=== PATIENT | female | born 1990 | race Caucasian/White ===

== ENCOUNTER 2017-11-04 14:26 | Emergency (ER) | payer OTHER ==
[2017-11-04] MEDS ORDERED: Zofran 4 MG/2 ML VIAL IV ONE (14:43)
[2017-11-04] MEDS ORDERED: Sodium Chloride 0.9% 1000 ML 1,000 ML IV STA ×2 (14:43→15:44)
[2017-11-04] MEDS ORDERED: Sodium Chloride 0.9% 1000 ML 1,000 ML ONE ×2 (14:55→16:01)
[2017-11-04] MEDS ORDERED: Zofran 4 MG/2 ML VIAL ONE (14:55)
--- NOTE | 2017-11-04 15:02 | ERPHSYRPT ---
- History of Present Illness Time Seen by Provider: 11/04/17 14:45 Source: patient Exam Limitations: clinical condition Physician History: PATIENT IS A -2 PARA-1, 9 WEEKS GESTATION CONFIRMED WITH ULTRASOUND LAST WEEK COMPLAINS OF ACUTE ONSET OF FREQUENT EPISODES OF EMESIS. DENIES WEAKNESS, DIZZINESS UPON STANDING, ABDOMINAL PAIN, OR VAGINAL BLEEDING. Timing/Duration: today Modifying Factors: Improves With: nothing Associated Symptoms: nausea, vomiting Allergies/Adverse Reactions: No Known Drug Allergies Allergy (Verified 11/04/17 14:47) Home Medications: Pnv,Calcium 72/Iron/Folic Acid [Pnv Plus Multivit Tab] 1 tab PO DAILY 11/04/17 [History] Hx Tetanus, Diphtheria Vaccination/Date Given: No Hx Influenza Vaccination/Date Given: No Hx Pneumococcal Vaccination/Date Given: No - Review of Systems Constitutional: No Fever, No Chills Eyes: No Symptoms Ears, Nose, & Throat: No Symptoms Respiratory: No Symptoms, No Cough, No Dyspnea Cardiac: No Symptoms, No Chest Pain, No Edema, No Syncope Abdominal/Gastrointestinal: Nausea, Vomiting, No Abdominal Pain, No Diarrhea Genitourinary Symptoms: No Symptoms, No Dysuria Musculoskeletal: No Symptoms, No Back Pain, No Neck Pain Skin: No Symptoms, No Rash Neurological: No Dizziness, No Focal Weakness, No Sensory Changes Psychological: No Symptoms Endocrine: No Symptoms All Other Systems: Reviewed and Negative - Past Medical History Pertinent Past Medical History: No - Past Surgical History Past Surgical History: Yes Female Surgical History: Section - Social History Smoking Status: Never smoker Exposure to second hand smoke: No Drug Use: none Patient Lives Alone: No - Nursing Vital Signs Nursing Vital Signs: Initial Vital Signs Temperature 97.8 F 11/04/17 15:00 Pulse Rate 84 11/04/17 15:00 Respiratory Rate 20 11/04/17 15:00 Blood Pressure 136/80 11/04/17 15:00 O2 Sat by Pulse Oximetry 100 11/04/17 15:00 Pain Scale Pain Intensity 0 - Physical Exam General Appearance: no apparent distress, alert Eye Exam: PERRL/EOMI, eyes nml inspection Ears, Nose, Throat Exam: normal ENT inspection, TMs normal, pharynx normal, moist mucous membranes Neck Exam: normal inspection, non-tender, supple, full range of motion Respiratory Exam: normal breath sounds, lungs clear, No respiratory distress Cardiovascular Exam: regular rate/rhythm, normal heart sounds, normal peripheral pulses Gastrointestinal/Abdomen Exam: soft, normal bowel sounds, other (NONTENDER), No tenderness Back Exam: normal inspection, normal range of motion, No CVA tenderness, No vertebral tenderness Extremity Exam: normal inspection, normal range of motion, pelvis stable Neurologic Exam: alert, oriented x 3, cooperative, normal mood/affect, nml cerebellar function, nml station & gait, sensation nml, No motor deficits Skin Exam: normal color, warm, dry, No rash Lymphatic Exam: No adenopathy SpO2 Interpretation: normal SpO2: 98 Ordered Tests: Active Orders 24 hr Category Date Time Status IV Insertion STAT Care 11/04/17 15:12 Active Orthostatic Vital Signs STAT Care 11/04/17 14:44 Active BMP Stat Lab 11/04/17 14:45 Completed CBC W DIFF Stat Lab 11/04/17 14:45 Completed CULTURE,URINE Stat Lab 11/04/17 16:00 Received UA W/ MICROSCOPIC Stat Lab 11/04/17 16:00 Completed Medication Summary Discontinued Medications Generic Name Dose Route Start Last Admin Trade Name Freq PRN Reason Stop Dose Admin Sodium Chloride 1,000 mls @ 999 mls/hr 11/04/17 14:43 11/04/17 14:56 Sodium Chloride 0.9% 1000 Ml IV 11/04/17 15:43 999 mls/hr .Q1H1M STA Administration Sodium Chloride Confirm 11/04/17 14:55 Sodium Chloride 0.9% 1000 Ml Administered 11/04/17 14:56 Dose 1,000 mls @ ud .ROUTE .STK-MED ONE Sodium Chloride 1,000 mls @ 999 mls/hr 11/04/17 15:44 11/04/17 16:02 Sodium Chloride 0.9% 1000 Ml IV 11/04/17 16:44 999 mls/hr .Q1H1M STA Administration Sodium Chloride Confirm 11/04/17 16:01 Sodium Chloride 0.9% 1000 Ml Administered 11/04/17 16:02 Dose 1,000 mls @ ud .ROUTE .STK-MED ONE Ondansetron HCl 4 mg 11/04/17 14:43 11/04/17 14:57 Zofran 4 Mg/2 Ml Vial IV 11/04/17 14:44 4 mg STAT ONE Administration Ondansetron HCl Confirm 11/04/17 14:55 Zofran 4 Mg/2 Ml Vial Administered 11/04/17 14:56 Dose 4 mg .ROUTE .STK-MED ONE Lab/Rad Data: Laboratory Result Diagrams 11/04/17 14:45 11/04/17 14:45 Laboratory Results 11/04/17 11/04/17 11/04/17 Range/Units 16:00 14:45 14:45 WBC 11.0 H (4.0-10.5) K/mm3 RBC 4.69 (4.1-5.4) M/mm3 Hgb 13.5 (12.0-16.0) gm/dl Hct 39.4 (35-47) % MCV 84.0 (78-100) fl MCH 28.8 (26-32) pg MCHC 34.3 (32-36) g/dl RDW 13.7 (11.5-14.0) % Plt Count 272 (150-450) K/mm3 MPV 10.8 H (6-9.5) fl Gran % 82.5 H (36.0-66.0) % Lymphocytes % 11.7 L (24.0-44.0) % Monocytes % 5.5 (0.0-12.0) % Eosinophils % 0.2 (0.00-5.0) % Basophils % 0.1 (0.0-0.4) % Basophils # 0.01 (0-0.4) Sodium 138 (136-145) mEq/L Potassium 3.7 (3.5-5.1) mEq/L Chloride 103 (98-107) mEq/L Carbon Dioxide 21.7 (21-32) mEq/L Anion Gap 17.4 H (5-15) MEQ/L BUN 6 L (9-20) mg/dL Creatinine 0.58 (0.55-1.30) mg/dl Estimated GFR > 60 ML/MIN Glucose 87 (70-110) MG/DL Calcium 8.6 (8.5-10.1) mg/dL Ur Collection Type CCMS Urine Color YELLOW (YELLOW) Urine Appearance CLEAR (CLEAR) Urine pH 5.0 (5-6) Ur Specific [place] 1.010 (1.005-1.025) Urine Protein NEGATIVE (Negative) Urine Ketones MODERATE (NEGATIVE) Urine Blood 50 (0-5) Amor/ul Urine Nitrite NEGATIVE (NEGATIVE) Urine Bilirubin NEGATIVE (NEGATIVE) Urine Urobilinogen NORMAL (0-1) mg/dL Ur Leukocyte Esterase TRACE (NEGATIVE) Urine Microscopic RBC 0-2 (0-2) /HPF Urine Microscopic WBC 2-5 (0-5) /HPF Ur Epithelial Cells FEW (FEW) /HPF Urine Bacteria FEW (NEGATIVE) /HPF Urine Culture Reflexed YES (NO) Urine Glucose NEGATIVE (NEGATIVE) mg/dL Specimen Received 11-04-17 1614 - Progress Progress Note: 11/04/17 14:58 ORTHOSTATIC VITAL SIGNS UNCHANGED, IV NORMAL SALINE 2 LITERS OVER 2 HOURS, ZOFRAN 4MG IV 11/04/17 15:38 PATIENT HAD NO EPISODES OF DRY HEAVES OR EMESIS THROUGHOUT HER EMERGENCY ROOM VISIT Counseled pt/family regarding: lab results, diagnosis, need for follow-up - Departure Time of Disposition: 17:25 Departure Disposition: Home Clinical Impression: HYPEREMESIS GRAVIDARIUM Condition: Stable Critical Care Time: No Referrals: BERTA BIANCHI [Primary Care Provider] - Additional Instructions: BEGIN A CLEAR LIQUID DIET FOR 24 HOURS, FOLLOWED BY A FULL LIQUID DIET DAY #2, INCLUDES SOUPS, TOAST,CRACKERS AND CHEESES, FOLLOWED BY REGULAR DIET DAY #3, ZOFRAN 4MG EVERY 4 HOURS NEEDED FOR NAUSEA. CONSULT YOUR PRIMARY CARE PROVIDER TOMORROW FOR A FOLLOWUP APPOINTMENT. RETURN TO EMERGENCY FOR VOMITING. Prescriptions: Ondansetron ODT 4 MG [Zofran Odt 4 mg] 4 mg PO Q4H PRN PRN #8 tab.rapdis PRN Reason: Nausea
[2017-11-04 15:08] LABS: BASOPHIL % 0.1 % (0.0-0.4); Basophil (Absolute #) 0.01 (0-0.4); Eosinophil % 0.2 % (0.00-5.0); Eosinophil (Absolute #) 0.02 (0-0.5); Granulocyte Absolute (ANC) 9.06 (1.4-6.9); Granulocytes % 82.5 % (36.0-66.0); Hematocrit 39.4 % (35-47); Hemoglobin 13.5 gm/dl (12.0-16.0); Lymphocyte (Absolute #) 1.28 (1.0-4.6); Lymphocytes % 11.7 % (24.0-44.0); Mean Corpuscular Hemoglobin 28.8 pg (26-32); Mean Corpuscular Hgb Concent. 34.3 g/dl (32-36); Mean Platelet Volume 10.8 fl (6-9.5); Monocytes % 5.5 % (0.0-12.0); Platelet Count 272 K/mm3 (150-450); Red Blood Count 4.69 M/mm3 (4.1-5.4); Red Cell Distribution Width 13.7 % (11.5-14.0)
[2017-11-04 15:37] LABS: ANION GAP 17.4 MEQ/L (5-15); BLOOD UREA NITROGEN 6 mg/dL (9-20); CHLORIDE 103 mEq/L (98-107); Calcium 8.6 mg/dL (8.5-10.1); Carbon Dioxide 21.7 mEq/L (21-32); Creatinine 1 0.58 mg/dl (0.55-1.30); EST GLOMERULAR FILTRATION RATE > 60 ML/MIN; Glucose 87 MG/DL (70-110); Potassium 3.7 mEq/L (3.5-5.1); SODIUM 138 mEq/L (136-145)
[2017-11-04 16:15] LABS: Appearance CLEAR (CLEAR); Bilirubin NEGATIVE (NEGATIVE); Blood 50 Ery/ul (0-5); Glucose NEGATIVE (NEGATIVE); Ketones MODERATE (NEGATIVE); Leukocyte Esterase TRACE (NEGATIVE); Nitrite NEGATIVE (NEGATIVE); Protein,Urine Dip NEGATIVE (Negative); Urobilinogen NORMAL mg/dL (0-1)
[2017-11-04 16:30] LABS: Bacteria FEW /HPF (NEGATIVE); Epithelial Cells FEW /HPF (FEW)
[2017-11-04 16:40] VITALS: BP 129/74
[2017-11-04 16:53] VITALS: O2SAT 98
[2017-11-04 17:36] VITALS: PULSE 77
== END 2017-11-04 17:36 | disposition home or self-care (01) ==
LOC: ED 14:26
DX: O21.0 Mild hyperemesis gravidarum (principal); Z3A.09 9 weeks gestation of pregnancy
CPT/HCPCS: 36000; 36415; 80048; 81000; 85025; 87077; 87086; 87186; 96360; 96361; 96374; 99284; J2405

== ENCOUNTER 2018-04-21 08:36 | Observation (INO) | payer OTHER ==
[2018-04-21 09:10] VITALS: BP 119/69; PULSE 91
--- NOTE | 2018-04-21 11:22 | XRAY ---
Indication: Evaluate PAOLA. 4 quadrant PAOLA is 12.4 cm, unchanged from January 20, 2018 exam.
== END 2018-04-21 10:00 | disposition home or self-care (01) ==
LOC: UNDOADMOB 08:36 → OB 08:36 → UNDODISOB 10:00
PROVIDERS: ADMIT Family Medicine; ATTEND Family Medicine
DX: Z34.83 Encounter for supervision of other normal pregnancy, third trimester (principal)
CPT/HCPCS: 59025; 76815; G0378

== ENCOUNTER 2018-04-28 08:31 | Observation (INO) | payer OTHER ==
--- NOTE | 2018-04-28 09:25 | XRAY ---
Indication: Evaluate PAOLA. Limited OB ultrasound performed to evaluate PAOLA. 4 quadrant PAOLA is 10.4 cm, previously 12.4 cm on April 21, 2018.
[2018-04-28 10:23] VITALS: BP 112/60; PULSE 51
== END 2018-04-28 10:21 | disposition home or self-care (01) ==
LOC: OB 08:31
PROVIDERS: ADMIT Family Medicine; ATTEND Family Medicine
DX: Z34.83 Encounter for supervision of other normal pregnancy, third trimester (principal)
CPT/HCPCS: 59025; 76815; G0378

== ENCOUNTER 2018-05-05 08:43 | Observation (INO) | payer OTHER ==
[2018-05-05 09:17] VITALS: BP 123/70; PULSE 96
--- NOTE | 2018-05-05 09:43 | XRAY ---
Indication: PAOLA. Limited OB ultrasound performed to evaluate PAOLA. heart rate 154 bpm. Four-quadrant PAOLA is 9.8 cm, previously 10.4 cm on April 28, 2018.
== END 2018-05-05 10:55 | disposition home or self-care (01) ==
LOC: OB 08:43
PROVIDERS: ADMIT Family Medicine; ATTEND Family Medicine
DX: Z34.83 Encounter for supervision of other normal pregnancy, third trimester (principal)
CPT/HCPCS: 76815; G0378; 59025

== ENCOUNTER 2018-05-12 08:19 | Observation (INO) | payer OTHER ==
[2018-05-12 08:46] VITALS: BP 145/67; PULSE 56
--- NOTE | 2018-05-12 09:30 | XRAY ---
Indication: Evaluate PAOLA. well-being. Limited OB ultrasound performed to evaluate PAOLA. 4 quadrant PAOLA is 4.5 cm, previously 9.8 cm on May 05, 2018.
== END 2018-05-12 09:15 | disposition home or self-care (01) ==
LOC: OB 08:19
PROVIDERS: ADMIT Family Medicine; ATTEND Family Medicine
DX: Z34.83 Encounter for supervision of other normal pregnancy, third trimester (principal)
CPT/HCPCS: 76815; G0378; 59025

== ENCOUNTER 2018-05-16 08:32 | Observation (INO) | payer OTHER ==
[2018-05-16 09:02] VITALS: BP 142/77; PULSE 55
== END 2018-05-16 10:55 | disposition home or self-care (01) ==
LOC: OB 08:32
PROVIDERS: ADMIT Family Medicine; ATTEND Family Medicine
DX: Z34.83 Encounter for supervision of other normal pregnancy, third trimester (principal)
CPT/HCPCS: 59025; G0378

== ENCOUNTER 2018-05-19 02:14 | Inpatient (IN) | payer OTHER ==
[~2018-05-19 02:14] MED LIST: Lactated Ringers 1,000 ML IV SCH; Pepcid 20 MG VIAL IV SCH; Reglan 10 MG/2 ML IV SCH
[2018-05-19 03:01] LABS: Hematocrit 32.8 % (35-47); Hemoglobin 11.1 gm/dl (12.0-16.0); Mean Cell Volume 88.2 fl (78-100); Mean Corpuscular Hemoglobin 29.8 pg (26-32); Mean Corpuscular Hgb Concent. 33.8 g/dl (32-36); Mean Platelet Volume 11.5 fl (6-9.5); Platelet Count 206 K/mm3 (150-450); Red Blood Count 3.72 M/mm3 (4.1-5.4); Red Cell Distribution Width 14.7 % (11.5-14.0); White Blood Count 12.5 K/mm3 (4.0-10.5)
[2018-05-19 03:55] LABS: Amphetamine,Urine NEGATIVE (NEGATIVE); Barbiturate,Urine NEGATIVE (NEGATIVE); Benzodiazepine,Urine NEGATIVE (NEGATIVE); Cocaine,Urine NEGATIVE (NEGATIVE); Methadone,Urine NEGATIVE (NEGATIVE); Opiate,Urine NEGATIVE (NEGATIVE); PCP,Urine NEGATIVE (NEGATIVE); THC,Urine NEGATIVE (NEGATIVE)
[2018-05-19 04:16] LABS: INR 0.97 (0.8-3.0)
[2018-05-19 04:19] LABS: PTT 24.3 SECONDS (25.3-37.0)
[2018-05-19 04:46] LABS: Appearance CLEAR (CLEAR); Bilirubin NEGATIVE (NEGATIVE); Blood NEGATIVE Ery/ul (0-5); Glucose NEGATIVE (NEGATIVE); Ketones NEGATIVE (NEGATIVE); Leukocyte Esterase NEGATIVE (NEGATIVE); Nitrite NEGATIVE (NEGATIVE); Protein,Urine Dip NEGATIVE (Negative); Specific Gravity 1.025 (1.005-1.025); Urobilinogen NORMAL mg/dL (0-1)
[2018-05-19 04:48] LABS: ABO TYPING A; RH TYPING POSITIVE
[2018-05-19 04:49] LABS: Antibody Screen POSITIVE (NEGATIVE)
[2018-05-19] MEDS ORDERED: CEFAZOLIN 2 GM-D5W BAG** 2 GM/50 ML ML IV SCH (05:00)
[2018-05-19] MEDS: BICITRA 30 ML CUP PO SCH ×2 (05:30→05:52)
[2018-05-19] MEDS ORDERED: Lactated Ringers 1,000 ML IV ONE (06:31)
--- NOTE | 2018-05-19 08:24 | OP ---
SURGERY DATE/TIME: 05/19/2018 0700 PREOPERATIVE DIAGNOSES: 1) History of prior section. 2) Anti-E antibody syndrome. 3) Oligohydramnios. POSTOPERATIVE DIAGNOSES: 1) History of prior section. 2) Anti-E antibody syndrome. 3) Oligohydramnios. PROCEDURE: Repeat low transverse section. SURGEON: Elpidio Carrion M.D. ESTIMATED BLOOD LOSS: 400 cc. URINE OUTPUT: 50 cc of clear straw-colored urine. ANESTHESIA: Spinal by Jono Rosenberg CRNA. SPECIMENS: Placenta was sent for pathology. DESCRIPTION OF PROCEDURE: After informed written consent was obtained, the patient was taken to the operating room. She has a history of anti-E antibody syndrome and was being seen with [facility] in [place] cooperatively and found to have oligohydramnios with an PAOLA of around 4.1. She was prepped and draped in the usual sterile fashion after she underwent spinal anesthesia and then adequate level of anesthesia was assessed. Skin incision was made by knife and carried down through the subcutaneous fat to the level of the fascia. The fascia was nicked on both sides of the midline and extended in horizontal fashion using curved Alvarez scissors. The superior free edge of the fascia was grasped with Ethan clamps and the underlying rectus muscles were dissected free. The same was repeated inferiorly. The peritoneal cavity was opened bluntly and then a bladder flap was created and reflected over the lower uterine segment. A horizontal uterine incision was made by knife and carried down to the level of the amniotic membranes which were carefully artificially ruptured. There was very scant amniotic fluid as excepted. A female infant was delivered from the vertex presentation with no respiratory effort at the time of . The cord was clamped and cut and she was quickly handed off to the awaiting nursery team. The placenta was manually removed manually and the uterus was exteriorized. The uterine cavity was sponge curetted clean with lap sponge. The uterine incision was closed with #1 chromic in a running locked fashion. Good hemostasis and good closure were achieved. The posterior cul-de-sac was wiped free of blood and clot with a moist lap sponge. The uterus was returned to the peritoneal cavity. Lateral gutters were wiped free of blood and clot. The uterine incision was inspected and noted to have good hemostasis and good closure. The fascia was closed with 0 Vicryl in a running fashion with good closure and good hemostasis achieved. The subcutaneous fat was irrigated with warm, sterile saline. Any areas of bleeding were cauterized with electrocautery. Finally, the skin layer was closed with 4-0 undyed Vicryl in a running subcuticular fashion. Steri-Strips and occlusive dressing were placed over the incision. The patient was transferred to the recovery in good condition.
[2018-05-19 09:36] LABS: ANION GAP 12.8 MEQ/L (5-15); BLOOD UREA NITROGEN 5 mg/dL (7-17); CHLORIDE 108 mmol/L (98-107); Calcium 8.6 mg/dL (8.4-10.2); Carbon Dioxide 22 mmol/L (22-30); Creatinine 1 0.44 mg/dL (0.52-1.04); Glucose 103 mg/dL (74-106); PHOSPHOROUS 4.7 mg/dL (2.5-4.5); SODIUM 140 mmol/L (137-145)
[2018-05-19 09:39] LABS: Potassium 2.6 mmol/L (3.5-5.1)
[2018-05-19 09:58] LABS: Appearance CLOUDY (CLEAR); Bilirubin NEGATIVE (NEGATIVE); Glucose NEGATIVE (NEGATIVE); Ketones NEGATIVE (NEGATIVE); Leukocyte Esterase TRACE (NEGATIVE); Mucus MODERATE /HPF (NEGATIVE); Nitrite NEGATIVE (NEGATIVE); Protein,Urine Dip NEGATIVE (Negative); RBC 0-2 /HPF (0-2); Urobilinogen NORMAL mg/dL (0-1); WBC 0-2 /HPF (0-5)
[2018-05-19 09:59] LABS: Bacteria MODERATE /HPF (NEGATIVE); Epithelial Cells MODERATE /HPF (FEW)
[2018-05-19] MEDS ORDERED: NORCO 5/325 MG PO PRN (10:09)
[2018-05-19] MEDS ORDERED: CORTISONE 1% CREAM TP PRN (10:09)
[2018-05-19] MEDS ORDERED: Ambien 10 MG PO PRN (10:09)
[2018-05-19] MEDS ORDERED: Restoril 15 MG PO PRN (10:09)
[2018-05-19] MEDS ORDERED: TYLENOL EXTRA STRENGTH 500 MG PO PRN (10:09)
[2018-05-19] MEDS ORDERED: Dulcolax 10 MG SUPP PR PRN (10:09)
[2018-05-19] MEDS ORDERED: Anucort-HC SUPPOSITORY PR PRN (10:09)
[2018-05-19] MEDS ORDERED: Mylicon 80MG PO PRN (10:09)
[2018-05-19] MEDS: POTASSIUM CHLORIDE 20 mEq IN WATER 100ML 20 MEQ/100 ML BAG IV SCH ×2 (10:31→12:37)
[2018-05-19] MEDS ORDERED: HOLD NARCOTIC ANALGESICS AND SEDATIVES X24 HR MC PRN (11:25)
[2018-05-19] MEDS ORDERED: CLARITIN 10 MG PO PRN (11:25)
[2018-05-19] MEDS ORDERED: DEMEROL 50 MG IV PRN (11:25)
[2018-05-19] MEDS ORDERED: PERCOCET TABLET 5/325MG PO PRN (11:25)
[2018-05-19] MEDS ORDERED: BENADRYL 50 MG/ML IV PRN (11:25)
[2018-05-19] MEDS ORDERED: Nubain 10 MG/ML IV PRN (11:25)
[2018-05-19] MEDS ORDERED: MORPHINE SULFATE 2 MG INJ IV PRN (11:25)
[2018-05-19] MEDS ORDERED: Zofran 4 MG/2 ML VIAL IV PRN (11:25)
[2018-05-19] MEDS ORDERED: PHENYLEPHRINE HCL IJ ONE (13:39)
[2018-05-19] MEDS ORDERED: LIDOCAINE HCL 2% 100 MG/5 ML IJ ONE (13:39)
[2018-05-19] MEDS ORDERED: Pitocin 10 UNITS/ML IV ONE (13:39)
[2018-05-19] MEDS ORDERED: MARCAINE 0.5%-EPI 1:200,000 VL IJ ONE (13:39)
[2018-05-19 17:45] LABS: ALBUMIN 3.6 g/dL (3.5-5.0); ALKALINE PHOSPHATASE 87 U/L (38-126); ANION GAP 13.7 MEQ/L (5-15); BLOOD UREA NITROGEN 6 mg/dL (7-17); CHLORIDE 105 mmol/L (98-107); Calcium 8.2 mg/dL (8.4-10.2); Carbon Dioxide 24 mmol/L (22-30); Creatinine 1 0.36 mg/dL (0.52-1.04); Glucose 79 mg/dL (74-106); Potassium 3.6 mmol/L (3.5-5.1); SGOT/AST 20 U/L (14-36); SGPT/ALT 14 U/L (0-35); SODIUM 139 mmol/L (137-145); Total Protein 6.4 g/dL (6.3-8.2)
[2018-05-19] MEDS ORDERED: Dextrose 5%-Lr IV Solution 1000 ML 1,000 ML IV ONE (23:22)
[2018-05-19] MEDS: MOTRIN 400 MG PO PRN (23:27)
[2018-05-20] MEDS: MOTRIN 400 MG PO PRN (05:28)
[2018-05-20 06:23] LABS: BASOPHIL % 0.1 % (0.0-0.4); Basophil (Absolute #) 0.02 (0-0.4); Eosinophil % 0.4 % (0.00-5.0); Eosinophil (Absolute #) 0.07 (0-0.5); Granulocyte Absolute (ANC) 11.63 (1.4-6.9); Hematocrit 28.8 % (35-47); Hemoglobin 9.7 gm/dl (12.0-16.0); Lymphocyte (Absolute #) 2.99 (1.0-4.6); Lymphocytes % 18.8 % (24.0-44.0); Mean Cell Volume 89.2 fl (78-100); Mean Corpuscular Hgb Concent. 33.7 g/dl (32-36); Mean Platelet Volume 11.5 fl (6-9.5); Monocyte (Absolute #) 1.22 (0.0-1.3); Monocytes % 7.7 % (0.0-12.0); Platelet Count 186 K/mm3 (150-450); Red Blood Count 3.23 M/mm3 (4.1-5.4); Red Cell Distribution Width 14.7 % (11.5-14.0); White Blood Count 15.9 K/mm3 (4.0-10.5)
[2018-05-20] MEDS ORDERED: M-M-R II Vaccine With Diluent SQ ONE (07:35)
[2018-05-20 07:58] VITALS: O2SAT 98
[2018-05-20 08:13] VITALS: BP 118/68; PULSE 68
--- NOTE | 2018-05-20 09:05 | PCM.DS ---
Discharge Summary Date of Admission: 05/19/18 02:14 Admitting Physician: BABAK WATTS Consults: Consults on Case 05/19/18 02:00 Notify Anesthesia Provider Notify Physician OF ADMISSION 05/19/18 11:31 Notify Anesthesia Provider PRN Primary Care Provider: BABAK WATTS Allergies Allergies No Known Drug Allergies Allergy (Verified 05/19/18 02:25) Hospital Summary - Hospital Course Hospital Course: patient had a repeat on 05/19 at 36 weeks. hx anti-E antibody syndrome, olidohydramnios. baby required resuscitation and transfer to NICU. mom is doing well, tolerating po, ambulating. mild lochia. - Vitals & Intake/Output Vital Signs: Vital Signs Temperature 98.1 F 05/20/18 08:12 Pulse Rate 68 05/20/18 08:12 Respiratory Rate 18 05/20/18 08:12 Blood Pressure 118/68 05/20/18 08:12 O2 Sat by Pulse Oximetry 98 05/20/18 07:57 Intake & Output: Intake & Output 05/17/18 05/18/18 05/19/18 05/20/18 11:59 11:59 11:59 11:59 Intake Total 4752 Output Total 800 Balance 3952 Weight 90.265 kg - Lab Result Diagrams: 05/20/18 05:22 05/19/18 17:15 Lab Results-Last 24 Hrs: Lab Results-Last 24 Hours 05/19/18 05/19/18 05/19/18 Range/Units 07:30 08:32 17:15 WBC (4.0-10.5) K/mm3 RBC (4.1-5.4) M/mm3 Hgb (12.0-16.0) gm/dl Hct (35-47) % MCV (78-100) fl MCH (26-32) pg MCHC (32-36) g/dl RDW (11.5-14.0) % Plt Count (150-450) K/mm3 MPV (6-9.5) fl Gran % (36.0-66.0) % Eos # (Auto) (0-0.5) Absolute Lymphs (auto) (1.0-4.6) Absolute Monos (auto) (0.0-1.3) Lymphocytes % (24.0-44.0) % Monocytes % (0.0-12.0) % Eosinophils % (0.00-5.0) % Basophils % (0.0-0.4) % Absolute Granulocytes (1.4-6.9) Basophils # (0-0.4) Sodium 140 139 (137-145) mmol/L Potassium 2.6 L* 3.6 (3.5-5.1) mmol/L Chloride 108 H 105 (98-107) mmol/L Carbon Dioxide 22 24 (22-30) mmol/L Anion Gap 12.8 13.7 (5-15) MEQ/L BUN 5 L 6 L (7-17) mg/dL Creatinine 0.44 L 0.36 L (0.52-1.04) mg/dL Estimated GFR > 60.0 > 60.0 ML/MIN Glucose 103 79 (74-106) mg/dL Calcium 8.6 8.2 L (8.4-10.2) mg/dL Phosphorus 4.7 H (2.5-4.5) mg/dL Magnesium 1.4 L (1.6-2.3) mg/dL Total Bilirubin 0.40 (0.2-1.3) mg/dL AST 20 (14-36) U/L ALT 14 (0-35) U/L Alkaline Phosphatase 87 (38-126) U/L Serum Total Protein 6.4 (6.3-8.2) g/dL Albumin 3.6 (3.5-5.0) g/dL Ur Collection Type CLEAN CATCH Urine Color YELLOW (YELLOW) Urine Appearance CLOUDY (CLEAR) Urine pH 6.0 (5-6) Ur Specific [place] 1.020 (1.005-1.025) Urine Protein NEGATIVE (Negative) Urine Ketones NEGATIVE (NEGATIVE) Urine Blood 5-10 (0-5) [place]/ul Urine Nitrite NEGATIVE (NEGATIVE) Urine Bilirubin NEGATIVE (NEGATIVE) Urine Urobilinogen NORMAL (0-1) mg/dL Ur Leukocyte Esterase TRACE (NEGATIVE) Urine Microscopic RBC 0-2 (0-2) /HPF Urine Microscopic WBC 0-2 (0-5) /HPF Ur Epithelial Cells MODERATE (FEW) /HPF Urine Bacteria MODERATE (NEGATIVE) /HPF Urine Mucus MODERATE (NEGATIVE) /HPF Urine Glucose NEGATIVE (NEGATIVE) mg/dL Specimen Received 05-19-18 0800 05/20/18 Range/Units 05:22 WBC 15.9 H (4.0-10.5) K/mm3 RBC 3.23 L (4.1-5.4) M/mm3 Hgb 9.7 L (12.0-16.0) gm/dl Hct 28.8 L (35-47) % MCV 89.2 (78-100) fl MCH 30.0 (26-32) pg MCHC 33.7 (32-36) g/dl RDW 14.7 H (11.5-14.0) % Plt Count 186 (150-450) K/mm3 MPV 11.5 H (6-9.5) fl Gran % 73.0 H (36.0-66.0) % Eos # (Auto) 0.07 (0-0.5) Absolute Lymphs (auto) 2.99 (1.0-4.6) Absolute Monos (auto) 1.22 (0.0-1.3) Lymphocytes % 18.8 L (24.0-44.0) % Monocytes % 7.7 (0.0-12.0) % Eosinophils % 0.4 (0.00-5.0) % Basophils % 0.1 (0.0-0.4) % Absolute Granulocytes 11.63 H (1.4-6.9) Basophils # 0.02 (0-0.4) Sodium (137-145) mmol/L Potassium (3.5-5.1) mmol/L Chloride (98-107) mmol/L Carbon Dioxide (22-30) mmol/L Anion Gap (5-15) MEQ/L BUN (7-17) mg/dL Creatinine (0.52-1.04) mg/dL Estimated GFR ML/MIN Glucose (74-106) mg/dL Calcium (8.4-10.2) mg/dL Phosphorus (2.5-4.5) mg/dL Magnesium (1.6-2.3) mg/dL Total Bilirubin (0.2-1.3) mg/dL AST (14-36) U/L ALT (0-35) U/L Alkaline Phosphatase (38-126) U/L Serum Total Protein (6.3-8.2) g/dL Albumin (3.5-5.0) g/dL Ur Collection Type Urine Color (YELLOW) Urine Appearance (CLEAR) Urine pH (5-6) Ur Specific [place] (1.005-1.025) Urine Protein (Negative) Urine Ketones (NEGATIVE) Urine Blood (0-5) Amor/ul Urine Nitrite (NEGATIVE) Urine Bilirubin (NEGATIVE) Urine Urobilinogen (0-1) mg/dL Ur Leukocyte Esterase (NEGATIVE) Urine Microscopic RBC (0-2) /HPF Urine Microscopic WBC (0-5) /HPF Ur Epithelial Cells (FEW) /HPF Urine Bacteria (NEGATIVE) /HPF Urine Mucus (NEGATIVE) /HPF Urine Glucose (NEGATIVE) mg/dL Specimen Received Micro Results-Entire Visit: Microbiology 05/19/18 07:30 Urine Culture - Preliminary Urine, Catheterized NO GROWTH TO DATE Discharge Exam General Appearance: no apparent distress, obese Neurologic Exam: alert, oriented x 3 Skin Exam: normal color, warm, dry Respiratory Exam: normal breath sounds, lungs clear, No respiratory distress Cardiovascular Exam: regular rate/rhythm Gastrointestinal/Abdomen Exam: soft, other (incision clean,dry, intact), No tenderness, No mass Extremity Exam: normal inspection, normal range of motion Final Diagnosis/Problem List - Final Discharge Diagnosis/Problem (1) delivery delivered Current Visit: Yes Status: Acute (2) 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
[2018-05-20] MEDS ORDERED: Colace 100 MG PO SCH (10:00)
[2018-05-20] MEDS ORDERED: FERREX 150 PO SCH (10:00)
[2018-05-20] MEDS ORDERED: Astramorph-Pf 5 MG/10 ML IJ ONE (11:04)
[2018-05-21] MEDS ORDERED: FERREX 150 PO SCH (10:00)
== END 2018-05-20 11:05 | disposition home or self-care (01) | DRG 765 ==
LOC: OB 02:14 → OBSVTOIN 02:14
PROVIDERS: ADMIT Family Medicine; ATTEND Family Medicine
PROC: 10D00Z1 Extraction of Products of Conception, Low, Open Approach (ICD-10-PCS; principal; 2018-05-19)
DX: O41.03X0 Oligohydramnios, third trimester, not applicable or unspecified (principal); D80.8 Other immunodeficiencies with predominantly antibody defects; Z37.0 Single live birth; Z3A.36 36 weeks gestation of pregnancy
CPT/HCPCS: 36415; 59025; 62322; 64488; 76815; 76937; 76942; 80048; 80053; 80307; 81000; 81002; 83735; 84100; 85025; 85027; 85610; 85730; 86850; 86900; 86901; 87086; 88307; 90471; 90707; 94799; G0378; J0690; J2274; J2370; J2405; J2590; J3480; L0625; A9270-GY

== ENCOUNTER 2020-05-23 03:54 | Emergency (ER) | payer OTHER ==
[2020-05-23 04:05] VITALS: O2SAT 99
[2020-05-23] MEDS ORDERED: Sodium Chloride 0.9% 1000 ML 1,000 ML ONE (04:27)
[2020-05-23] MEDS ORDERED: TORAdol 30 mg Injection IV ONE (04:29)
[2020-05-23] MEDS ORDERED: Sodium Chloride 0.9% 1000 ML 1,000 ML IV STA (04:29)
[2020-05-23] MEDS ORDERED: Zofran 4 MG/2 ML VIAL IV ONE (04:29)
[2020-05-23] MEDS ORDERED: Zofran 4 MG/2 ML VIAL ONE (04:30)
[2020-05-23] MEDS ORDERED: TORAdol 30 mg Injection ONE (04:35)
[2020-05-23 04:46] LABS: Absolute Neutrophil Ct (ANC) 5.32 (1.4-6.9); BASOPHIL % 0.2 % (0.0-0.4); Basophil (Absolute #) 0.02 (0-0.4); Eosinophil % 2.1 % (0.00-5.0); Eosinophil (Absolute #) 0.21 (0-0.5); Hematocrit 39.5 % (35-47); Lymphocyte (Absolute #) 3.42 (1.0-4.6); Mean Cell Volume 87.6 fl (78-100); Mean Corpuscular Hemoglobin 28.8 pg (26-32); Mean Corpuscular Hgb Concent. 32.9 g/dl (32-36); Mean Platelet Volume 11.5 fl (7.5-11.0); Monocyte (Absolute #) 0.81 (0.0-1.3); Monocytes % 8.3 % (0.0-12.0); Neutrophil % 54.4 % (36.0-66.0); Platelet Count 274 K/mm3 (150-450); Red Blood Count 4.51 M/mm3 (4.1-5.4); Red Cell Distribution Width 13.8 % (11.5-14.0); White Blood Count 9.8 K/mm3 (4.0-10.5)
[2020-05-23 04:53] LABS: INR 0.96 (0.8-3.0); PROTIME 10.9 SECONDS (9.95-12.35)
[2020-05-23 05:01] LABS: ALBUMIN 4.1 g/dL (3.5-5.0); ALKALINE PHOSPHATASE 48 U/L (38-126); AMYLASE 70 U/L (30-110); BLOOD UREA NITROGEN 11 mg/dL (7-17); CHLORIDE 104 mmol/L (98-107); Calcium 8.8 mg/dL (8.4-10.2); Carbon Dioxide 24 mmol/L (22-30); Creatinine 1 0.59 mg/dL (0.52-1.04); EST GLOMERULAR FILTRATION RATE > 60.0 ML/MIN; Glucose 94 mg/dL (74-106); LIPASE 63 U/L (23-300); Potassium 3.6 mmol/L (3.5-5.1); SGOT/AST 21 U/L (14-36); SGPT/ALT 17 U/L (0-35); SODIUM 137 mmol/L (137-145); Total Protein 7.6 g/dL (6.3-8.2)
--- NOTE | 2020-05-23 05:34 | ERPHSYRPT ---
- History of Present Illness Time Seen by Provider: 05/23/20 04:15 Historian: patient Exam Limitations: no limitations Patient Subjective Stated Complaint: pt c/o back pain coming around to front Triage Nursing Assessment: pt c/o flank pain coming around to the front, upper center abd area. Abd soft with active bs x4 quad, nontender. Pt denies any diff urinating. lungs clear. Physician History: White female who presents with bilateral flank pain greatest on the right. Started 7 PM last night she has no history of any previous similar episodes she had denies nausea vomiting diarrhea she denies fever chills or sweats she has had no change in urination her only previous abdominal surgery was 2 C-sections. Timing/Duration: yesterday Activities at Onset: none Quality: stabbing Abdominal Pain Onset Location: epigastric, flank Pain Radiation: epigastric Severity of Pain-Max: severe Severity of Pain-Current: moderate Modifying Factors: Improves With: nothing Allergies/Adverse Reactions: No Known Drug Allergies Allergy (Verified 05/23/20 04:12) Home Medications: Norgestimate-Ethinyl Estradiol [Tri-Sprintec] 1 tab PO DAILY 05/23/20 [History] Hx Tetanus, Diphtheria Vaccination/Date Given: (unknown) Hx Influenza Vaccination/Date Given: No Hx Pneumococcal Vaccination/Date Given: No Immunizations Up to Date: No Travel Risk - International Travel Have you traveled outside of the country in past 3 weeks: No - Coronavirus Screening Are you exhibiting any of the following symptoms?: No Close contact with a COVID-19 positive Pt in past 14-21 Days: No - Past Medical History Pertinent Past Medical History: Yes Neurological History: Migraines ENT History: No Pertinent History Cardiac History: No Pertinent History Respiratory History: Bronchitis Endocrine Medical History: No Pertinent History Musculoskeletal History: No Pertinent History GI Medical History: No Pertinent History History: No Pertinent History Psycho-Social History: No Pertinent History Female Reproductive Disorders: No Pertinent History - Past Surgical History Past Surgical History: Yes Neuro Surgical History: No Pertinent History Cardiac: No Pertinent History Respiratory: No Pertinent History Gastrointestinal: No Pertinent History Genitourinary: No Pertinent History Musculoskeletal: No Pertinent History Female Surgical History: Section - Social History Smoking Status: Former smoker Exposure to second hand smoke: Yes Drug Use: none Patient Lives Alone: No - Female History Hx Now: No - Nursing Vital Signs Nursing Vital Signs: Initial Vital Signs Temperature 98.1 F 05/23/20 04:03 Pulse Rate 85 05/23/20 04:03 Respiratory Rate 20 05/23/20 04:03 Blood Pressure 177/103 05/23/20 04:03 O2 Sat by Pulse Oximetry 99 05/23/20 04:03 Pain Scale Pain Intensity 4 - Physical Exam General Appearance: mild distress, alert Eye Exam: PERRL/EOMI, eyes nml inspection Ears, Nose, Throat Exam: normal ENT inspection, pharynx normal, moist mucous membranes Neck Exam: normal inspection, non-tender, supple, full range of motion Respiratory Exam: normal breath sounds, lungs clear, No respiratory distress Cardiovascular Exam: regular rate/rhythm, normal heart sounds Gastrointestinal/Abdomen Exam: normal bowel sounds, tenderness (Tenderness in the right upper quadrant and epigastrium), guarding, No mass, No rebound Back Exam: normal inspection, normal range of motion, No CVA tenderness, No vertebral tenderness Extremity Exam: normal inspection, normal range of motion, pelvis stable Neurologic Exam: alert, oriented x 3, cooperative, normal mood/affect, nml cerebellar function, sensation nml, No motor deficits Skin Exam: normal color, warm, dry SpO2: 99 - Course Nursing assessment & vital signs reviewed: Yes - CT Exams Abdomen/Pelvis CT Interpretation: Tele-radiologist Report, Other (Pression was of no renal stones identified mild inflammatory changes measured dysenteric fat in the left upper quadrant and #3 Gillian lithiasis.) Ordered Tests: Active Orders 24 hr Category Date Time Status EKG-ER Only STAT Care 05/23/20 04:29 Active IV Insertion STAT Care 05/23/20 04:29 Active ABDOMEN AND PELVIS W/0 CONTRAS [CT] Stat Exams 05/23/20 05:17 Taken CHEST 1 VIEW (PORTABLE) Stat Exams 05/23/20 04:30 Taken AMYLASE Stat Lab 05/23/20 04:41 Completed CBC W DIFF Stat Lab 05/23/20 04:41 Completed CMP Stat Lab 05/23/20 04:41 Completed HCG,QUALITATIVE URINE Stat Lab 05/23/20 04:41 Completed LIPASE Stat Lab 05/23/20 04:41 Completed Lactic Acid Stat Lab 05/23/20 04:29 Completed PROTIME WITH INR Stat Lab 05/23/20 04:41 Completed TROPONIN Q3H Lab 05/23/20 04:42 Completed TROPONIN Q3H Lab 05/23/20 07:30 Ordered TROPONIN Q3H Lab 05/23/20 10:30 Ordered TROPONIN Q3H Lab 05/23/20 13:30 Ordered TROPONIN Q3H Lab 05/23/20 16:30 Ordered UA W/RFX UR CULTURE Stat Lab 05/23/20 04:30 Completed Medication Summary Discontinued Medications Generic Name Dose Route Start Last Admin Trade Name Maximilianq PRN Reason Stop Dose Admin Sodium Chloride Confirm 05/23/20 04:27 Sodium Chloride 0.9% 1000 Ml Administered 05/23/20 04:28 Dose 1,000 mls @ ud .ROUTE .STK-MED ONE Sodium Chloride 1,000 mls @ 999 mls/hr 05/23/20 04:29 05/23/20 04:33 Sodium Chloride 0.9% 1000 Ml IV 05/23/20 05:29 999 mls/hr .Q1H1M STA Administration Ketorolac Tromethamine 30 mg 05/23/20 04:29 05/23/20 04:36 Toradol 30 Mg Injection IV 05/23/20 04:30 30 mg STAT ONE Administration Ketorolac Tromethamine Confirm 05/23/20 04:35 Toradol 30 Mg Injection Administered 05/23/20 04:36 Dose 30 mg .ROUTE .STK-MED ONE Ondansetron HCl 4 mg 05/23/20 04:29 05/23/20 04:33 Zofran 4 Mg/2 Ml Vial IV 05/23/20 04:30 4 mg STAT ONE Administration Ondansetron HCl Confirm 05/23/20 04:30 Zofran 4 Mg/2 Ml Vial Administered 05/23/20 04:31 Dose 4 mg .ROUTE .STK-MED ONE Lab/Rad Data: Laboratory Result Diagrams 05/23/20 04:41 05/23/20 04:41 Laboratory Results 05/23/20 05/23/20 05/23/20 Range/Units 04:42 04:41 04:41 WBC (4.0-10.5) K/mm3 RBC (4.1-5.4) M/mm3 Hgb (12.0-16.0) gm/dl Hct (35-47) % MCV (78-100) fl MCH (26-32) pg MCHC (32-36) g/dl RDW (11.5-14.0) % Plt Count (150-450) K/mm3 MPV (7.5-11.0) fl Gran % (36.0-66.0) % Eos # (Auto) (0-0.5) Absolute Lymphs (auto) (1.0-4.6) Absolute Monos (auto) (0.0-1.3) Lymphocytes % (24.0-44.0) % Monocytes % (0.0-12.0) % Eosinophils % (0.00-5.0) % Basophils % (0.0-0.4) % Absolute Granulocytes (1.4-6.9) Basophils # (0-0.4) PT 10.9 (9.95-12.35) SECONDS INR 0.96 (0.8-3.0) Sodium (137-145) mmol/L Potassium (3.5-5.1) mmol/L Chloride (98-107) mmol/L Carbon Dioxide (22-30) mmol/L Anion Gap (5-15) MEQ/L BUN (7-17) mg/dL Creatinine (0.52-1.04) mg/dL Estimated GFR ML/MIN Glucose (74-106) mg/dL Lactic Acid (0.4-2.0) Calcium (8.4-10.2) mg/dL Total Bilirubin (0.2-1.3) mg/dL AST (14-36) U/L ALT (0-35) U/L Alkaline Phosphatase (38-126) U/L Troponin I < 0.012 (0.000-0.034) ng/mL Serum Total Protein (6.3-8.2) g/dL Albumin (3.5-5.0) g/dL Amylase (30-110) U/L Lipase (23-300) U/L Urine Color (YELLOW) Urine Appearance (CLEAR) Urine pH (5-6) Ur Specific Cheney (1.005-1.025) Urine Protein (Negative) Urine Ketones (NEGATIVE) Urine Blood (0-5) Amor/ul Urine Nitrite (NEGATIVE) Urine Bilirubin (NEGATIVE) Urine Urobilinogen (0-1) mg/dL Ur Leukocyte Esterase (NEGATIVE) Urine WBC (Auto) (0-5) /HPF Urine RBC (Auto) (0-2) /HPF U Epithel Cells (Auto) (FEW) /HPF Urine Bacteria (Auto) (NEGATIVE) /HPF Urine Mucus (Auto) (NEGATIVE) /HPF Urine Culture Reflexed (NO) Urine Glucose (NEGATIVE) mg/dL Urine HCG, Qual NEGATIVE (Negative) 05/23/20 05/23/20 05/23/20 Range/Units 04:41 04:41 04:30 WBC 9.8 (4.0-10.5) K/mm3 RBC 4.51 (4.1-5.4) M/mm3 Hgb 13.0 (12.0-16.0) gm/dl Hct 39.5 (35-47) % MCV 87.6 (78-100) fl MCH 28.8 (26-32) pg MCHC 32.9 (32-36) g/dl RDW 13.8 (11.5-14.0) % Plt Count 274 (150-450) K/mm3 MPV 11.5 H (7.5-11.0) fl Gran % 54.4 (36.0-66.0) % Eos # (Auto) 0.21 (0-0.5) Absolute Lymphs (auto) 3.42 (1.0-4.6) Absolute Monos (auto) 0.81 (0.0-1.3) Lymphocytes % 35.0 (24.0-44.0) % Monocytes % 8.3 (0.0-12.0) % Eosinophils % 2.1 (0.00-5.0) % Basophils % 0.2 (0.0-0.4) % Absolute Granulocytes 5.32 (1.4-6.9) Basophils # 0.02 (0-0.4) PT (9.95-12.35) SECONDS INR (0.8-3.0) Sodium 137 (137-145) mmol/L Potassium 3.6 (3.5-5.1) mmol/L Chloride 104 (98-107) mmol/L Carbon Dioxide 24 (22-30) mmol/L Anion Gap 12.0 (5-15) MEQ/L BUN 11 (7-17) mg/dL Creatinine 0.59 (0.52-1.04) mg/dL Estimated GFR > 60.0 ML/MIN Glucose 94 (74-106) mg/dL Lactic Acid (0.4-2.0) Calcium 8.8 (8.4-10.2) mg/dL Total Bilirubin 0.30 (0.2-1.3) mg/dL AST 21 (14-36) U/L ALT 17 (0-35) U/L Alkaline Phosphatase 48 (38-126) U/L Troponin I (0.000-0.034) ng/mL Serum Total Protein 7.6 (6.3-8.2) g/dL Albumin 4.1 (3.5-5.0) g/dL Amylase 70 (30-110) U/L Lipase 63 (23-300) U/L Urine Color YELLOW (YELLOW) Urine Appearance CLEAR (CLEAR) Urine pH 5.0 (5-6) Ur Specific [place]ney 1.017 (1.005-1.025) Urine Protein NEGATIVE (Negative) Urine Ketones NEGATIVE (NEGATIVE) Urine Blood LARGE (0-5) Amor/ul Urine Nitrite NEGATIVE (NEGATIVE) Urine Bilirubin NEGATIVE (NEGATIVE) Urine Urobilinogen NEGATIVE (0-1) mg/dL Ur Leukocyte Esterase NEGATIVE (NEGATIVE) Urine WBC (Auto) 0-2 (0-5) /HPF Urine RBC (Auto) 0-2 (0-2) /HPF U Epithel Cells (Auto) RARE (FEW) /HPF Urine Bacteria (Auto) RARE (NEGATIVE) /HPF Urine Mucus (Auto) SLIGHT (NEGATIVE) /HPF Urine Culture Reflexed NO (NO) Urine Glucose NEGATIVE (NEGATIVE) mg/dL Urine HCG, Qual (Negative) 05/23/20 Range/Units 04:29 WBC (4.0-10.5) K/mm3 RBC (4.1-5.4) M/mm3 Hgb (12.0-16.0) gm/dl Hct (35-47) % MCV (78-100) fl MCH (26-32) pg MCHC (32-36) g/dl RDW (11.5-14.0) % Plt Count (150-450) K/mm3 MPV (7.5-11.0) fl Gran % (36.0-66.0) % Eos # (Auto) (0-0.5) Absolute Lymphs (auto) (1.0-4.6) Absolute Monos (auto) (0.0-1.3) Lymphocytes % (24.0-44.0) % Monocytes % (0.0-12.0) % Eosinophils % (0.00-5.0) % Basophils % (0.0-0.4) % Absolute Granulocytes (1.4-6.9) Basophils # (0-0.4) PT (9.95-12.35) SECONDS INR (0.8-3.0) Sodium (137-145) mmol/L Potassium (3.5-5.1) mmol/L Chloride (98-107) mmol/L Carbon Dioxide (22-30) mmol/L Anion Gap (5-15) MEQ/L BUN (7-17) mg/dL Creatinine (0.52-1.04) mg/dL Estimated GFR ML/MIN Glucose (74-106) mg/dL Lactic Acid 1.5 (0.4-2.0) Calcium (8.4-10.2) mg/dL Total Bilirubin (0.2-1.3) mg/dL AST (14-36) U/L ALT (0-35) U/L Alkaline Phosphatase (38-126) U/L Troponin I (0.000-0.034) ng/mL Serum Total Protein (6.3-8.2) g/dL Albumin (3.5-5.0) g/dL Amylase (30-110) U/L Lipase (23-300) U/L Urine Color (YELLOW) Urine Appearance (CLEAR) Urine pH (5-6) Ur Specific Cheney (1.005-1.025) Urine Protein (Negative) Urine Ketones (NEGATIVE) Urine Blood (0-5) Amor/ul Urine Nitrite (NEGATIVE) Urine Bilirubin (NEGATIVE) Urine Urobilinogen (0-1) mg/dL Ur Leukocyte Esterase (NEGATIVE) Urine WBC (Auto) (0-5) /HPF Urine RBC (Auto) (0-2) /HPF U Epithel Cells (Auto) (FEW) /HPF Urine Bacteria (Auto) (NEGATIVE) /HPF Urine Mucus (Auto) (NEGATIVE) /HPF Urine Culture Reflexed (NO) Urine Glucose (NEGATIVE) mg/dL Urine HCG, Qual (Negative) - Progress Progress: unchanged - Departure Departure Disposition: Home Clinical Impression: Biliary colic Condition: Stable Critical Care Time: No Referrals: BERTA BIANCHI [Primary Care Provider] - Instructions: Gallstones (DC) Prescriptions: PANTOPRAZOLE 40 mg Tablet [Protonix 40MG Tablet] 40 mg PO QAM 30 Days #30 tab Ondansetron HCl [Zofran] 4 mg PO TID PRN #10 tablet PRN Reason: Nausea/Vomiting
[2020-05-23 05:35] VITALS: BP 140/89; PULSE 68
[2020-05-23 05:47] LABS: Appearance CLEAR (CLEAR); Bacteria RARE /HPF (NEGATIVE); Bilirubin NEGATIVE (NEGATIVE); Blood LARGE Ery/ul (0-5); Epithelial Cells RARE /HPF (FEW); Glucose NEGATIVE (NEGATIVE); Ketones NEGATIVE (NEGATIVE); Leukocyte Esterase NEGATIVE (NEGATIVE); Mucus SLIGHT /HPF (NEGATIVE); Nitrite NEGATIVE (NEGATIVE); Protein,Urine Dip NEGATIVE (Negative); RBC 0-2 /HPF (0-2); Specific Gravity 1.017 (1.005-1.025); Urobilinogen NEGATIVE mg/dL (0-1); WBC 0-2 /HPF (0-5)
--- NOTE | 2020-05-23 09:05 | XRAY ---
Indication: Pain. Comparison: None Portable apical lordotic chest demonstrates normal heart and lungs. Bony thorax intact with minimal scoliosis.
--- NOTE | 2020-05-23 09:07 | XRAY ---
Indication: Bilateral flank and epigastric pain. Multiple contiguous axial images obtained through the abdomen and pelvis without contrast using renal stone protocol. Comparison: None Lung bases are clear. Heart is not enlarged. No renal calculus or evidence for obstructive uropathy in either system. Noncontrasted stomach and bowel loops appear nonobstructed. Normal air-filled appendix. No free fluid/air. Gallbladder demonstrates a few gallstones, largest 2.6 cm. There are several small left abdomen mesenteric nodes with stranding favoring adenitis. Remaining liver, pancreas, spleen, adrenal glands, kidneys, ureters, bladder, uterus, and aorta appear unremarkable for noncontrast exam. Osseous structures intact. Small fatty umbilical hernia. Impression: 1. Negative renal calculus or evidence for obstructive uropathy. 2. Left abdomen small mesenteric nodes with stranding favoring mesenteric adenitis. 3. Incidental cholelithiasis. Comment: Preliminary interpretation was made by [facility]. No critical discrepancy.
== END 2020-05-23 06:00 | disposition home or self-care (01) ==
LOC: ED 03:54
DX: K80.50 Calculus of bile duct without cholangitis or cholecystitis without obstruction (principal)
CPT/HCPCS: 36000; 36415; 71045; 74176; 80053; 81001; 82150; 83605; 83690; 84484; 84703; 85025; 85610; 93005; 96374; 96375; 99284; J1885; J2405

== ENCOUNTER 2024-06-26 16:21 | Emergency (ER) | payer OTHER ==
[2024-06-26 16:49] VITALS: TEMP 98.4
[2024-06-26 17:13] LABS: Absolute Neutrophil Ct (ANC) 6.09 x10^3/uL (1.56-6.13); BASOPHIL % 0.2 % (0.1-1.2); Basophil (Absolute #) 0.02 x10^3/uL (0.01-0.08); Eosinophil % 0.9 % (0.7-5.8); Eosinophil (Absolute #) 0.08 x10^3/uL (0.04-0.36); Hematocrit 31.9 % (34.1-44.9); Hemoglobin 10.6 g/dL (11.2-15.7); IMMATURE GRAN # 0.06 x10^3u/L (0.001-0.031); IMMATURE GRAN % 0.6 % (0.001-0.429); Lymphocyte (Absolute #) 2.41 x10^3/uL (1.18-3.74); Mean Cell Volume 83.9 fL (79.4-94.8); Mean Corpuscular Hemoglobin 27.9 pg (25.6-32.2); Mean Corpuscular Hgb Concent. 33.2 g/dL (32.2-35.5); Mean Platelet Volume 10.9 fL (9.4-12.3); Monocytes % 6.5 % (4.7-12.5); Neutrophil % 65.8 % (34.0-71.1); Platelet Count 225 x10^3/uL (182-369); Red Cell Distribution Width 14.5 % (11.7-14.4); White Blood Count 9.3 x10^3/uL (3.98-10.04)
--- NOTE | 2024-06-26 17:19 | ERPHSYRPT ---
- History of Present Illness Historian: patient Exam Limitations: no limitations Patient Subjective Stated Complaint: Patient states she was instructed to come to the ER by 4:30pm today for an ultrasound per Dr. Musa. C/O intermittent abdominal pain since Wednesday evening. No bleeding. Triage Nursing Assessment: Patient ambulated back to ER without difficulties. She is alert and oriented. Skin tone normal. No current pain. No N/V. No constipation. Physician History: Patient had some abdominal pain on Wednesday which was 3 days ago. It went away on Wednesday. Today she had an episode of abdominal pain. It is in the epigastrium and radiates a little bit to the right and left upper quadrant. She has had some diarrhea. She has not had any fever or chills or nausea vomiting. She is . She has had no vaginal bleeding or cramping. Her has been uneventful so far. She has not had any fever or chills. Nothing makes his symptoms better or worse. She is able to eat. She is currently pain-free. She just had an episode of abdominal pain which is lasted a couple minutes today. It resolved. She talked to her SOFTWARE WRITER on-call and they told her to come in. Allergies/Adverse Reactions: No Known Drug Allergies Allergy (Verified 06/26/24 16:40) Home Medications: Pnv,Calcium 72/Iron/Folic Acid [ Vitamin Plus Low Iron] 1 tab PO DAILY 06/26/24 [History] Hx Tetanus, Diphtheria Vaccination/Date Given: Yes Hx Influenza Vaccination/Date Given: No Hx Pneumococcal Vaccination/Date Given: No Immunizations Up to Date: Yes Travel Risk - International Travel Have you traveled outside of the country in past 3 weeks: No - Emerging Infectious Disease Are you exhibiting symptoms associated with any current EIDs: Yes Symptoms: Abdominal Pain - Review of Systems Constitutional: No Symptoms Eyes: No Symptoms Ears, Nose, & Throat: No Symptoms Respiratory: No Symptoms Cardiac: No Symptoms Musculoskeletal: No Symptoms Skin: No Symptoms All Other Systems: Reviewed and Negative - Past Medical History Pertinent Past Medical History: Yes Neurological History: Migraines ENT History: No Pertinent History Cardiac History: No Pertinent History Respiratory History: Bronchitis Endocrine Medical History: No Pertinent History Musculoskeletal History: No Pertinent History GI Medical History: No Pertinent History History: No Pertinent History Psycho-Social History: No Pertinent History Female Reproductive Disorders: No Pertinent History - Past Surgical History Past Surgical History: Yes Neuro Surgical History: No Pertinent History Cardiac: No Pertinent History Respiratory: No Pertinent History Gastrointestinal: No Pertinent History Genitourinary: No Pertinent History Musculoskeletal: No Pertinent History Female Surgical History: Section - Female History Hx Last Menstrual Period: 1 WEEK Hx Now: Yes Gestational Age: 19.5 weeks - Social History Smoking Status: Former smoker Exposure to second hand smoke: Yes Drug Use: none Patient Lives Alone: No - Social Determinants of Health Will the patient participate in the screening: Yes Do you worry about a steady place to live?: No Do you have any problems with any of the following?: No known problems In the past 12 months,have you had to go without utilities?: No Transportation Issues: No Has anyone in your support network made you feel unsafe?: No Have you or anyone in your house had to go without enough: No - Nursing Vital Signs Nursing Vital Signs: Initial Vital Signs Temperature 98.4 F 06/26/24 16:40 Pulse Rate 71 06/26/24 16:40 Respiratory Rate 16 06/26/24 16:40 Blood Pressure 113/64 06/26/24 16:40 O2 Sat by Pulse Oximetry 97 06/26/24 16:40 Pain Scale Pain Intensity 6 - Physical Exam General Appearance: no apparent distress Eye Exam: PERRL/EOMI Neck Exam: normal inspection Respiratory Exam: normal breath sounds, chest tenderness Cardiovascular Exam: regular rate/rhythm, normal heart sounds Gastrointestinal/Abdomen Exam: soft, normal bowel sounds, No tenderness, No distention, No mass, No guarding Pelvic Exam: not done Rectal Exam: not done Extremity Exam: normal inspection Neurologic Exam: alert, oriented x 3 Skin Exam: normal color, warm SpO2: 99 - Course Nursing assessment & vital signs reviewed: Yes Ordered Tests: Active Orders 24 hr Category Date Time Status ABDOMINAL-LIMITED [US] Stat Exams 06/26/24 17:14 Taken OB LIMITED [US] Stat Exams 06/26/24 16:54 Taken CBC W DIFF Stat Lab 06/26/24 17:10 Completed CMP Stat Lab 06/26/24 17:10 Completed CULTURE,URINE Stat Lab 06/26/24 17:14 Received HCG, Quantitative (Inhouse) Stat Lab 06/26/24 17:10 Completed LIPASE Stat Lab 06/26/24 17:10 Completed UA W/RFX UR CULTURE Stat Lab 06/26/24 17:14 Completed Lab/Rad Data: Laboratory Result Diagrams 06/26/24 17:10 06/26/24 17:10 Laboratory Results 06/26/24 06/26/24 06/26/24 Range/Units 17:14 17:10 17:10 WBC (3.98-10.04) x10^3/uL RBC (3.93-5.22) x10^6/uL Hgb (11.2-15.7) g/dL Hct (34.1-44.9) % MCV (79.4-94.8) fL MCH (25.6-32.2) pg MCHC (32.2-35.5) g/dL RDW (11.7-14.4) % Plt Count (182-369) x10^3/uL MPV (9.4-12.3) fL Gran % (34.0-71.1) % Immature Gran % (Auto) (0.001-0.429) % Nucleat RBC Rel Count (0.00-0.2) % Eos # (Auto) (0.04-0.36) x10^3/uL Immature Gran # (Auto) (0.001-0.031) x10^3u/L Absolute Lymphs (auto) (1.18-3.74) x10^3/uL Absolute Monos (auto) (0.24-0.86) x10^3/uL Absolute Nucleated RBC (0.00-0.012) x10^3u/L Lymphocytes % (19.3-51.7) % Monocytes % (4.7-12.5) % Eosinophils % (0.7-5.8) % Basophils % (0.1-1.2) % Absolute Granulocytes (1.56-6.13) x10^3/uL Basophils # (0.01-0.08) x10^3/uL Sodium 137 (135-145) mmol/L Potassium 3.3 L (3.5-5.1) mmol/L Chloride 107 (98-107) mmol/L Carbon Dioxide 19 L (22-30) mmol/L Anion Gap 14.1 (5-15) MEQ/L BUN 7 (7-17) mg/dL Creatinine 0.53 (0.52-1.04) mg/dL Estimated GFR 122.8 ML/MIN Glucose 102 (74-106) mg/dL Calcium 9.2 (8.4-10.2) mg/dL Total Bilirubin 0.30 (0.2-1.3) mg/dL AST 21 (14-36) U/L ALT 20 (0-35) U/L Alkaline Phosphatase 42 (38-126) U/L Serum Total Protein 6.3 (6.3-8.2) g/dL Albumin 3.4 L (3.5-5.0) g/dL Lipase 48 (23-300) U/L Beta HCG, Quant 2466.6 mIU/ml Urine Color Dark Yellow A (Yellow) Urine Appearance Cloudy A (Clear) Urine pH 5.5 (4.6-8.0) Ur Specific Dum[place] >=1.030 A (1.005-1.030) Urine Protein Trace A (Negative) Urine Glucose (UA) Negative (Negative) mg/dL Urine Ketones Trace A (Negative) Urine Blood Trace (Negative) Urine Nitrite Negative (Negative) Urine Bilirubin Small A (Negative) Urine Urobilinogen 1.0 A (0.2) mg/dL Ur Leukocyte Esterase Trace A (Negative) U Hyaline Cast (Auto) 3-5 A (0-2) /LPF Urine Microscopic RBC 0-2 (0-5) /HPF Urine Microscopic WBC 6-10 A (0-5) /HPF Ur Epithelial Cells Many A (None Seen) /HPF Urine Bacteria Many A (None Seen) /HPF Urine Culture Reflexed YES (NO) 06/26/24 Range/Units 17:10 WBC 9.3 (3.98-10.04) x10^3/uL RBC 3.80 L (3.93-5.22) x10^6/uL Hgb 10.6 L (11.2-15.7) g/dL Hct 31.9 L (34.1-44.9) % MCV 83.9 (79.4-94.8) fL MCH 27.9 (25.6-32.2) pg MCHC 33.2 (32.2-35.5) g/dL RDW 14.5 H (11.7-14.4) % Plt Count 225 (182-369) x10^3/uL MPV 10.9 (9.4-12.3) fL Gran % 65.8 (34.0-71.1) % Immature Gran % (Auto) 0.6 H (0.001-0.429) % Nucleat RBC Rel Count 0.0 (0.00-0.2) % Eos # (Auto) 0.08 (0.04-0.36) x10^3/uL Immature Gran # (Auto) 0.06 H (0.001-0.031) x10^3u/L Absolute Lymphs (auto) 2.41 (1.18-3.74) x10^3/uL Absolute Monos (auto) 0.60 (0.24-0.86) x10^3/uL Absolute Nucleated RBC 0.00 (0.00-0.012) x10^3u/L Lymphocytes % 26.0 (19.3-51.7) % Monocytes % 6.5 (4.7-12.5) % Eosinophils % 0.9 (0.7-5.8) % Basophils % 0.2 (0.1-1.2) % Absolute Granulocytes 6.09 (1.56-6.13) x10^3/uL Basophils # 0.02 (0.01-0.08) x10^3/uL Sodium (135-145) mmol/L Potassium (3.5-5.1) mmol/L Chloride (98-107) mmol/L Carbon Dioxide (22-30) mmol/L Anion Gap (5-15) MEQ/L BUN (7-17) mg/dL Creatinine (0.52-1.04) mg/dL Estimated GFR ML/MIN Glucose (74-106) mg/dL Calcium (8.4-10.2) mg/dL Total Bilirubin (0.2-1.3) mg/dL AST (14-36) U/L ALT (0-35) U/L Alkaline Phosphatase (38-126) U/L Serum Total Protein (6.3-8.2) g/dL Albumin (3.5-5.0) g/dL Lipase (23-300) U/L Beta HCG, Quant mIU/ml Urine Color (Yellow) Urine Appearance (Clear) Urine pH (4.6-8.0) Ur Specific [place] (1.005-1.030) Urine Protein (Negative) Urine Glucose (UA) (Negative) mg/dL Urine Ketones (Negative) Urine Blood (Negative) Urine Nitrite (Negative) Urine Bilirubin (Negative) Urine Urobilinogen (0.2) mg/dL Ur Leukocyte Esterase (Negative) U Hyaline Cast (Auto) (0-2) /LPF Urine Microscopic RBC (0-5) /HPF Urine Microscopic WBC (0-5) /HPF Ur Epithelial Cells (None Seen) /HPF Urine Bacteria (None Seen) /HPF Urine Culture Reflexed (NO) - Progress Progress: unchanged, improved Progress Note: 06/26/24 18:39 Patient was stable throughout stay. I got an ultrasound of her abdomen and pelvis. It all looked good. There is nothing abnormal. She was asymptomatic throughout her whole visit. Her labs showed no abnormalities. At this time I think she just had some abdominal pain which is benign. I going to discharge her to home in stable condition.It could be just some discomfort of . Medical Desision Making - Risk of complications Minimal Risk: Minimal risk of morbidity - Departure Departure Disposition: Home Clinical Impression: Discomfort during Condition: Stable Critical Care Time: No Referrals: TONI MUSA DO [Primary Care Provider] - Follow up/PCP as directed Additional Instructions: Follow-up with your SOFTWARE WRITER. Return if symptoms worsen.
[2024-06-26 17:26] LABS: Appearance Cloudy (Clear); Bacteria Many /HPF (None Seen); Bilirubin Small (Negative); Blood Trace (Negative); Epithelial Cells Many /HPF (None Seen); Glucose, Urine Negative (Negative); Ketones Trace (Negative); Leukocyte Esterase Trace (Negative); Nitrite Negative (Negative); Ph 5.5 (4.6-8.0); Protein,Urine Dip Trace (Negative); RBC 0-2 /HPF (0-5); Specific Gravity >=1.030 (1.005-1.030)
[2024-06-26 17:27] LABS: ALBUMIN 3.4 g/dL (3.5-5.0); ANION GAP 14.1 MEQ/L (5-15); BILIRUBIN,TOTAL 0.3 mg/dL (0.2-1.3); Calcium 9.2 mg/dL (8.4-10.2); Creatinine 1 0.53 mg/dL (0.52-1.04); EST GLOMERULAR FILTRATION RATE 122.8 ML/MIN; Potassium 3.3 mmol/L (3.5-5.1); Total Protein 6.3 g/dL (6.3-8.2)
[2024-06-26 18:35] VITALS: BP 117/67; PULSE 70; RESP 17
[2024-06-26 18:42] VITALS: O2SAT 99
--- NOTE | 2024-06-27 08:42 | XRAY ---
Indication: Bleeding and cramping. Second trimester . Evaluate heart rate, PAOLA, cervix, and placenta. Limited OB ultrasound demonstrates single intrauterine with heart rate 131 bpm. Posterior placenta without abnormal retroplacental fluid. PAOLA is 10.9 cm. Cervical length is 3.6 cm. Comment: Preliminary report was given.
--- NOTE | 2024-06-27 08:44 | XRAY ---
Indication: Abdominal pain. Two-dimensional right upper quadrant abdominal sonogram performed. Comparison: None Visualized liver is enlarged measuring 22.2 cm. No focal solid/cystic hepatic mass or ascites. Gallbladder partially contracted with numerous gallstones. No abnormal gallbladder wall thickening or pericholecystic fluid. Common bile duct measures 2.5 mm. No intrahepatic biliary distention. Remaining visualized pancreas and right kidney are sonographically unremarkable. Right kidney measures 13.1 x 6.0 x 4.9 cm. Impression: Cholelithiasis and hepatomegaly. Comment: Preliminary report was given.
== END 2024-06-26 19:13 | disposition home or self-care (01) ==
LOC: ED 16:21
DX: O26.892 Other specified pregnancy related conditions, second trimester (principal); Z3A.19 19 weeks gestation of pregnancy; R10.13 Epigastric pain
CPT/HCPCS: 36415; 76705; 76815; 80053; 81001; 83690; 84702; 85025; 87086; 99283